=== PATIENT | female | born 1975 | race Caucasian/White ===

== ENCOUNTER 2018-08-03 10:12 | Outpatient (CLI) | payer BC | END 2018-08-03 10:13 | disposition home or self-care (01) | LOC: BICMAMMO 10:12 | PROVIDERS: ATTEND Obstetrics & Gynecology | DX: Z12.31 Encounter for screening mammogram for malignant neoplasm of breast (principal); N63.10 Unspecified lump in the right breast, unspecified quadrant; Z80.3 Family history of malignant neoplasm of breast | CPT/HCPCS: 77063; 77067 ==

== ENCOUNTER 2018-08-06 10:18 | Outpatient (CLI) | payer BC ==
--- NOTE | 2018-08-06 11:38 | RAD ---
LUMBAR SPINE FOUR VIEWS: 08/06/2018 HISTORY: Low back pain. Lumbar radiculopathy. COMPARISON: None available. FINDINGS: There are five [id number] lumbar-type vertebral bodies. Vertebral body height and intervertebra l disk spaces are within normal limits. No fracture or subluxation is seen involving the lumbar spin e. There is no abnormal translational motion seen between the flexion and extension views. IMPRESSION: No fracture or subluxation involving the lumbar spine. POS: NAT
== END 2018-08-06 10:19 | disposition home or self-care (01) ==
LOC: TBSIIMAG 10:18
PROVIDERS: ATTEND Surgery
DX: M54.16 Radiculopathy, lumbar region (principal)
CPT/HCPCS: 72110

== ENCOUNTER 2018-08-12 09:42 | Outpatient (CLI) | payer BC ==
--- NOTE | 2018-08-12 12:44 | ULT ---
ULTRASOUND RIGHT BREAST: HISTORY: Mass. COMPARISON: Multiple prior mammograms with the most recent, diagnostic, today. FINDINGS: The findings correspond to the right breast mass. There is an 8 mm lymph node. This corresponds to the mammographic findings and is similar in size, dating back to 2010. IMPRESSION: BI-RADS 2-Benign findings. Continued screening is recommended. POS: OFF
== END 2018-08-12 09:43 | disposition home or self-care (01) ==
LOC: BICMAMMO 09:42
PROVIDERS: ATTEND Obstetrics & Gynecology
DX: R92.8 Other abnormal and inconclusive findings on diagnostic imaging of breast (principal); Z80.3 Family history of malignant neoplasm of breast; N63.10 Unspecified lump in the right breast, unspecified quadrant
CPT/HCPCS: G0279

== ENCOUNTER 2019-07-05 15:36 | Outpatient (CLI) | payer BC ==
--- NOTE | 2019-07-05 15:59 | RAD ---
2 VIEW CHEST: Date: 07/05/19 INDICATION: Cough. No prior comparison. FINDINGS: There is focal wedge-shaped density localizing to the left lower lobe with slight silhouetting of the left hemidiaphragm. Right lung is clear. Cardiac silhouette is normal in size. IMPRESSION: Wedge-shaped density of the left lower lobe favoring atelectasis. Recommend follow-up on a short-term basis to resolution in order to exclude a central obstructing process. POS: C
== END 2019-07-05 15:37 | disposition home or self-care (01) ==
LOC: BICRAD 15:36
PROVIDERS: ATTEND Family Medicine
DX: R05 Cough (principal); R91.8 Other nonspecific abnormal finding of lung field
CPT/HCPCS: 71046

== ENCOUNTER 2020-11-06 14:47 | Outpatient (CLI) | payer BC ==
--- NOTE | 2020-11-06 15:18 | MMO ---
Bilateral MAMMO Bilat Screen [facility]. CLINICAL HISTORY: Patient is 45 years old and is seen for screening. The patient has the following family history of breast cancer: cousin female, malignant (generic) and aunt, malignant (generic). The patient has no personal history of cancer. The patient has a history of bilateral Implants and right Excisional Biopsy in 1992 - benign. VIEWS: The views performed were: bilateral craniocaudal; bilateral mediolateral oblique; and bilateral Implant displaced with tomosynthesis. FILMS COMPARED: The present examination has been compared to prior imaging studies performed at [facility] on 07/04/2016, 07/24/2017, 08/03/2018 and 08/12/2018. This study has been interpreted with the assistance of computer-aided detection. MAMMOGRAM FINDINGS: The breasts are heterogeneously dense, which could obscure a lesion on mammography. There is a stable oval mass seen in the right breast. There are no suspicious masses, suspicious calcifications, or new areas of architectural distortion. IMPRESSION: THERE IS NO MAMMOGRAPHIC EVIDENCE OF MALIGNANCY. A ROUTINE FOLLOW-UP MAMMOGRAM IN 1 YEAR IS RECOMMENDED. THE RESULTS OF THIS EXAM WERE SENT TO THE PATIENT. ACR BI-RADS Category 2 - Benign finding MAMMOGRAPHY NOTE: 1. A negative mammogram report should not delay a biopsy if a dominant of clinically suspicious mass is present. 2. Approximately 10% to 15% of breast cancers are not detected by mammography. 3. Adenosis and dense breasts may obscure an underlying neoplasm. Reported by: BOBBY GALE MD Electonically Signed: [id number]
== END 2020-11-06 14:48 | disposition home or self-care (01) ==
LOC: BICMAMMO 14:47
PROVIDERS: ATTEND Obstetrics & Gynecology
DX: Z12.31 Encounter for screening mammogram for malignant neoplasm of breast (principal); Z80.3 Family history of malignant neoplasm of breast; Z91.89 Other specified personal risk factors, not elsewhere classified; Z98.82 Breast implant status
CPT/HCPCS: 77063; 77067

== ENCOUNTER 2021-12-23 14:59 | Outpatient (CLI) | payer OTHER | END 2021-12-23 15:00 | disposition home or self-care (01) | LOC: BICMAMMO 14:59 | PROVIDERS: ATTEND Obstetrics & Gynecology | DX: Z12.31 Encounter for screening mammogram for malignant neoplasm of breast (principal); Z80.3 Family history of malignant neoplasm of breast; Z91.89 Other specified personal risk factors, not elsewhere classified; Z98.82 Breast implant status | CPT/HCPCS: 77063; 77067 ==

== ENCOUNTER 2022-05-26 06:54 | Outpatient (CLI) | payer OTHER | END 2022-05-26 06:55 | disposition home or self-care (01) | LOC: BICULT 06:54 | PROVIDERS: ATTEND Family Medicine | DX: R10.31 Right lower quadrant pain (principal) | CPT/HCPCS: 76700 ==

== ENCOUNTER 2022-07-10 14:59 | Outpatient (CLI) | payer OTHER ==
[~2022-07-10 14:59] MED LIST: Iopamidol-370 76% 500 ML 1 ML ONE
== END 2022-07-10 15:00 | disposition home or self-care (01) ==
LOC: BICCT 14:59
PROVIDERS: ATTEND Family Medicine
DX: R10.31 Right lower quadrant pain (principal)
CPT/HCPCS: 74177; Q9967